=== PATIENT | female | born 1970 | race Caucasian/White ===

== ENCOUNTER → 2017-03-03 | Outpatient (CLI) | payer BC, OTHER ==
--- NOTE | 2017-03-04 13:15 | REP ---
Radionuclide thyroid scan and uptake: Studies performed with 381 microcuries of I-123. The right and left lobes of the thyroid gland are enlarged. The right lobe measures 6.3 cm craniocaudad. Left lobe measures 5.6 cm craniocaudad. There is a large focal zone of decreased uptake in the isthmus. The uptake in the right and left lobes appears homogeneous otherwise. There are uptake: 24 are thyroid uptake is 18.34% (normal is 25 - 35%. Impression: Large focal zone of decreased uptake in the thyroid isthmus. Recommend thyroid ultrasound follow-up. The 24 our thyroid uptake is below the normal range. Signed by Davi Phillips MD 03/04/2017 01:07 P
== END ==
LOC: M RAD 12:16
PROVIDERS: ATTEND Registered Nurse
DX: E04.2 Nontoxic multinodular goiter (principal); E05.90 Thyrotoxicosis, unspecified without thyrotoxic crisis or storm

== ENCOUNTER → 2017-11-11 | Outpatient (REF) | payer OTHER | LOC: M LAB REF 17:50 | DX: E04.2 Nontoxic multinodular goiter (principal) | CPT/HCPCS: 88173 ==

== ENCOUNTER → 2018-06-07 | Outpatient (REF) | payer OTHER | LOC: M LAB REF 14:26 | DX: E04.2 Nontoxic multinodular goiter (principal) | CPT/HCPCS: 88173 ==

== ENCOUNTER → 2021-07-31 | Outpatient (CLI) | payer OTHER ==
--- NOTE | 2021-07-31 11:56 | REP ---
INDICATION: RT KNEE PAIN. COMPARISON: None. TECHNIQUE: Sagittal spin-echo proton density, T2 STIR and T2 FLASH. Coronal spin-echo proton density and fat suppressed proton density. Axial fat suppressed proton density. FINDINGS: The anterior and posterior horns of the medial meniscus are within normal limits. The posterior horn of the lateral meniscus is truncated with additional truncation of the anterior. There is an additional triangular-shaped a signal void anterior to the truncated anterior horn of the lateral meniscus which has T2 hyper signal within it. The anterior and posterior cruciate ligaments are intact. There is marked thinning of the posterior cruciate ligament. The quadriceps and patellar tendons are intact. The medial and lateral collateral ligaments are intact. There is T2 hyper signal seen deep to the lateral collateral ligament. There is thinning and irregularity of the median aspect of the patellar articular cartilage with fissuring. The medial and lateral compartmental articular cartilages are thin. There is a slight joint effusion. There is a small amount of fluid seen between the tendons of the medial head of the gastrocnemius muscle and the semimembranosus muscle. IMPRESSION: 1. There is a bucket-handle tear of the lateral meniscus. 2. There is evidence of a mild sprain of the lateral collateral ligament. 3. 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 4. There is marked thinning of the posterior cruciate ligament which could be secondary to an old partial tear. This should be correlated clinically. 5. Other findings as described above. <Electronically signed by Ayaan Gandhi > 07/31/21 [id number]
== END ==
LOC: M RAD 10:31
PROVIDERS: ATTEND Internal Medicine
DX: M25.561 Pain in right knee (principal)

== ENCOUNTER → 2021-08-27 | Outpatient (CLI) | payer OTHER | LOC: M WHC 13:25 | PROVIDERS: ATTEND Internal Medicine | DX: Z12.31 Encounter for screening mammogram for malignant neoplasm of breast (principal) ==

== ENCOUNTER → 2021-09-17 | Outpatient (CLI) | payer OTHER | LOC: M WHC 10:51 | PROVIDERS: ATTEND Internal Medicine | DX: Z12.31 Encounter for screening mammogram for malignant neoplasm of breast (principal) | CPT/HCPCS: 77065; G0279 ==

== ENCOUNTER → 2022-10-01 | Outpatient (REF) | payer MEDICARE | LOC: M PLALAB 13:32 | PROVIDERS: ATTEND Advanced Practice Midwife | DX: Z12.4 Encounter for screening for malignant neoplasm of cervix (principal) | CPT/HCPCS: 87624; G0123 ==

== ENCOUNTER → 2024-02-10 | Outpatient (CLI) | payer BC, MEDICAID | LOC: M WHC 09:20 | PROVIDERS: ATTEND Advanced Practice Midwife | DX: Z12.31 Encounter for screening mammogram for malignant neoplasm of breast (principal) ==

== ENCOUNTER → 2025-07-19 | Outpatient (REF) | LOC: M CFLAB 14:17 | DX: Z01.89 Encounter for other specified special examinations (principal) ==